=== PATIENT | male | born 1975 | race Caucasian/White ===

== ENCOUNTER 2024-07-11 14:14 | Inpatient (IN) | payer OTHER ==
[~2024-07-11] VITALS: Ht 177.8 cm; Wt 96.4 kg
[2024-07-11] VITALS (9 sets, daily range): BP systolic 145–166; BP diastolic 73–114; PULSE 96–102; RESP 18; TEMP 98; O2SAT 95
[~2024-07-11 14:14] MED LIST: HYDR25TA2 PO; POTA-92 PO; VENL-67 PO
[2024-07-11] MEDS ORDERED: IOHEXOL 300 MG/ML 100 ML VIAL ONE ×2 (14:19→15:10)
[2024-07-11] MEDS ORDERED: LIDOCAINE/PF 1% 30 ML VIAL ONE (14:19)
[2024-07-11] MEDS ORDERED: SODIUM BICARBONATE 50 MEQ/50 ML VIAL ONE (14:19)
[2024-07-11] MEDS ORDERED: HEPARIN SODIUM 1000 UNITS/NS 1,000 ML ONE (14:20)
[2024-07-11] MEDS: MORPHINE SULFATE 4 MG/ML SYRINGE IVP ONE (14:25)
[2024-07-11] MEDS: TICAGRELOR 90 MG TABLET PO ONE (14:25)
[2024-07-11] MEDS: ASPIRIN 81 MG CHEWABLE TABLET PO ONE (14:25)
[2024-07-11] MEDS: HEPARIN SODIUM,PORCINE 5,000 UNITS/ML VIAL IVP ONE (14:25)
[2024-07-11] MEDS: ATORVASTATIN CALCIUM 40 MG TABLET PO ONE (14:25)
[2024-07-11 14:28] LABS: BASOPHILS % (AUTO) 0.8 % (0.0-2.0); EOSINOPHILS % (AUTO) 0.3 % (1.0-6.0); HEMATOCRIT 53.4 % (41-53); HEMOGLOBIN 17.9 g/dL (13.5-17.5); LYMPHOCYTES % (AUTO) 12.1 % (22.0-44.0); MEAN CORPUSCULAR HEMOGLOBIN 29.5 pg (26.0-34.0); MEAN CORPUSCULAR HGB CONC 33.4 G/dL (31.0-37.0); MEAN CORPUSCULAR VOLUME 88 fL (80-100); MONOCYTES # (AUTO) 0.5 K/uL (0.1-1.0); MONOCYTES % (AUTO) 5.7 % (2.0-9.0); NEUTROPHILS # (AUTO) 6.9 K/uL (1.8-7.7); NEUTROPHILS % (AUTO) 81.1 % (40.0-70.0); PLATELET COUNT (AUTO) 336 K/uL (150-450); RED BLOOD CELL COUNT(AUTO) 6.05 MIL/uL (4.50-5.90); RED CELL DISTRIBUTION WIDTH 14.3 % (11.5-14.5); WHITE BLOOD COUNT (AUTO) 8.5 K/uL (4.5-11.0)
[2024-07-11 14:38] LABS: ANION GAP 19 mmol/L (8-16); CALCIUM, TOTAL 9.7 mg/dL (8.8-10.5); CARBON DIOXIDE 21 mmol/L (22-29); CHLORIDE 100 mmol/L (98-107); CREATININE 1.09 mg/dL (0.60-1.30); GLOMERULAR FILTR. RATE CALC > 60 mL/min (>60); GLUCOSE,RANDOM 134 mg/dL (70-110); POTASSIUM 3.1 mmol/L (3.5-5.1); SODIUM SERUM 140 mmol/L (136-145); UREA NITROGEN, BLOOD 11 mg/dL (7-18)
[2024-07-11] MEDS ORDERED: FentaNYL CITRATE PF 100 MCG/2 ML VIAL ONE (14:38)
[2024-07-11] MEDS ORDERED: MIDAZOLAM HCL 2 MG/2 ML VIAL ONE (14:38)
[2024-07-11 14:47] LABS: TROPONIN I-HIGH SENSITIVITY 62 ng/L (<76)
[2024-07-11 14:48] LABS: PROTHROMBIN TIME 11.7 SEC (9.4-11.6)
[2024-07-11] MEDS ORDERED: VERAPAMIL HCL 2.5 MG/ML 2 ML VIAL ONE (15:01)
[2024-07-11] MEDS ORDERED: NITROGLYCERIN 50 MG/D5% WATER 250 ML ONE (15:02)
[2024-07-11] MEDS ORDERED: ONDANSETRON HCL 4 MG/2 ML VIAL ONE ×3 (15:04→17:08)
[2024-07-11 15:05] LABS: B-TYPE NATRIURETIC PEPTIDE 36 pg/mL (0-100)
[2024-07-11] MEDS: HEPARIN SODIUM 2,000 UNITS in HEPARIN SODIUM 1000 UNITS/NS 1,000 ML IARTER ONE (15:24)
[2024-07-11] MEDS: LIDOCAINE 1% 30 ML/SOD BICARB 8.4% 4 ML SQ ONE (15:27)
[2024-07-11] MEDS: MIDAZOLAM HCL 2 MG/2 ML VIAL IVP ONE (15:27)
[2024-07-11] MEDS: HEPARIN SODIUM,PORCINE 1,000 UNITS/ML 10 ML VIAL IVP ONE ×2 (15:28→16:49)
[2024-07-11] MEDS: FentaNYL CITRATE PF 100 MCG/2 ML VIAL IVP ONE (15:28)
[2024-07-11] MEDS: NITROGLYCERIN/D5W 50 MG/250 ML IV BOTTLE ICOR ONE (15:29)
[2024-07-11] MEDS: ONDANSETRON HCL 4 MG/2 ML VIAL IVP ONE (15:30)
[2024-07-11] MEDS: IOHEXOL 300 MG/ML 100 ML VIAL IARTER ONE ×2 (15:31)
[2024-07-11] MEDS: VERAPAMIL HCL 2.5 MG/ML 2 ML VIAL ICOR ONE (15:33)
[2024-07-11] MEDS: SODIUM CHLORIDE 0.9% 500 ML IV ONE (15:34)
[2024-07-11] MEDS ORDERED: ACETAMINOPHEN 325 MG TABLET PO PRN ×2 (16:00→16:15)
[2024-07-11] MEDS ORDERED: ALBUTEROL SULFATE 2.5 MG/0.5 ML NEB SOLUTION NEB PRN (16:15)
[2024-07-11] MEDS ORDERED: IPRATROPIUM BROMIDE 0.5 MG/2.5 ML NEB SOLUTION NEB PRN (16:15)
[2024-07-11] MEDS ORDERED: MAGNESIUM HYDROXIDE SUSPENSION 30 ML UDCUP PO PRN (16:15)
[2024-07-11] MEDS ORDERED: MORPHINE SULFATE 2 MG/ML SYRINGE IVP PRN (16:15)
[2024-07-11] MEDS ORDERED: BISACODYL 10 MG RECTAL RECTAL SUPPOSITORY PR PRN (16:15)
[2024-07-11] MEDS: VERAPAMIL HCL 2.5 MG/ML 2 ML VIAL IARTER ONE (16:49)
[2024-07-11] MEDS: NITROGLYCERIN/D5W 50 MG/250 ML IV BOTTLE IARTER ONE (16:49)
[2024-07-11] MEDS ORDERED: GABA-1181 PO (17:26)
[2024-07-11] MEDS ORDERED: SERT-440 PO (17:26)
[2024-07-11] MEDS ORDERED: GABA-529 PO (17:26)
[2024-07-11] MEDS ORDERED: LAMO150T6 PO (17:26)
[2024-07-11] MEDS ORDERED: TAMS0.4C94 PO (17:26)
[2024-07-11 17:27] LABS: CHOL/HDL RATIO 5.9 (4.2-7.3)
[2024-07-11] MEDS: ONDANSETRON HCL 4 MG/2 ML VIAL IVP PRN (17:43)
[2024-07-11] MEDS: HYDROCODONE/ACETAMINOPHEN 5-325 MG TABLET PO PRN (18:49)
[2024-07-11] MEDS: METOPROLOL SUCCINATE 50 MG ER TABLET PO SCH (20:38)
[2024-07-11] MEDS: GABAPENTIN 300 MG CAPSULE PO SCH (20:38)
[2024-07-11] MEDS: TICAGRELOR 90 MG TABLET PO SCH (20:38)
[2024-07-11] MEDS: LamoTRIgine 100 MG TABLET PO SCH (20:38)
[2024-07-11] MEDS: CHLORHEXIDINE GLUCONATE 2% TOWELETTE [2'S/6'S] TP SCH (21:58)
[2024-07-11] MEDS: HEPARIN SODIUM,PORCINE 5,000 UNITS/ML VIAL SQ SCH (23:23)
[2024-07-12] VITALS (7 sets, daily range): BP systolic 117–157; BP diastolic 76–104; PULSE 100–112; RESP 12–17; TEMP 97.7–98.9; O2SAT 93–95
[2024-07-12] MEDS: ASPIRIN 81 MG CHEWABLE TABLET PO SCH (08:49)
[2024-07-12] MEDS: LOSARTAN POTASSIUM 25 MG TABLET PO SCH ×2 (08:50→20:21)
[2024-07-12] MEDS: PANTOPRAZOLE SODIUM 40 MG DR TABLET PO SCH (08:50)
[2024-07-12] MEDS: ATORVASTATIN CALCIUM 40 MG TABLET PO SCH (08:50)
[2024-07-12] MEDS: TAMSULOSIN HCL 0.4 MG CAPSULE PO SCH (08:50)
[2024-07-12] MEDS: SERTRALINE HCL 100 MG TABLET PO SCH (08:51)
[2024-07-12] MEDS ORDERED: VENLAFAXINE HCL 75 MG ER CAPSULE PO SCH (09:00)
[2024-07-12 10:42] LABS: BASOPHILS % (AUTO) 0.1 % (0.0-2.0); EOSINOPHILS % (AUTO) 0.1 % (1.0-6.0); HEMATOCRIT 51.4 % (41-53); HEMOGLOBIN 16.9 g/dL (13.5-17.5); LYMPHOCYTES # (AUTO) 0.9 K/uL (1.0-4.8); LYMPHOCYTES % (AUTO) 4.8 % (22.0-44.0); MEAN CORPUSCULAR HEMOGLOBIN 29.2 pg (26.0-34.0); MEAN CORPUSCULAR HGB CONC 32.9 G/dL (31.0-37.0); MEAN CORPUSCULAR VOLUME 89 fL (80-100); MONOCYTES # (AUTO) 1.8 K/uL (0.1-1.0); PLATELET COUNT (AUTO) 350 K/uL (150-450); RED BLOOD CELL COUNT(AUTO) 5.78 MIL/uL (4.50-5.90); RED CELL DISTRIBUTION WIDTH 14.7 % (11.5-14.5); WHITE BLOOD COUNT (AUTO) 19.7 K/uL (4.5-11.0)
[2024-07-12 10:47] LABS: ANION GAP 11 mmol/L (8-16); CALCIUM, TOTAL 9.1 mg/dL (8.8-10.5); CARBON DIOXIDE 21 mmol/L (22-29); CHLORIDE 102 mmol/L (98-107); CREATININE 0.87 mg/dL (0.60-1.30); GLOMERULAR FILTR. RATE CALC > 60 mL/min (>60); GLUCOSE,RANDOM 151 mg/dL (70-110); POTASSIUM 3.7 mmol/L (3.5-5.1); SODIUM SERUM 134 mmol/L (136-145); UREA NITROGEN, BLOOD 18 mg/dL (7-18)
[2024-07-12] MEDS: ZOLPIDEM TARTRATE 5 MG TABLET PO PRN (20:21)
[2024-07-12] MEDS: METOPROLOL SUCCINATE 50 MG ER TABLET PO SCH (20:21)
[2024-07-13 00:10] VITALS: BP 131/85; PULSE 100; RESP 18; TEMP 98; O2SAT 94
[2024-07-13 04:12] VITALS: BP 134/83; PULSE 103; RESP 18; TEMP 98.1; O2SAT 95
[2024-07-13 07:05] LABS: BASOPHILS % (AUTO) 0.3 % (0.0-2.0); EOSINOPHILS % (AUTO) 0 % (1.0-6.0); HEMATOCRIT 46.8 % (41-53); HEMOGLOBIN 15.7 g/dL (13.5-17.5); LYMPHOCYTES # (AUTO) 0.9 K/uL (1.0-4.8); MEAN CORPUSCULAR HEMOGLOBIN 29.8 pg (26.0-34.0); MEAN CORPUSCULAR HGB CONC 33.7 G/dL (31.0-37.0); MEAN CORPUSCULAR VOLUME 88 fL (80-100); MONOCYTES # (AUTO) 1.8 K/uL (0.1-1.0); MONOCYTES % (AUTO) 9.6 % (2.0-9.0); NEUTROPHILS # (AUTO) 15.7 K/uL (1.8-7.7); NEUTROPHILS % (AUTO) 85.1 % (40.0-70.0); PLATELET COUNT (AUTO) 270 K/uL (150-450); RED BLOOD CELL COUNT(AUTO) 5.29 MIL/uL (4.50-5.90); RED CELL DISTRIBUTION WIDTH 14.2 % (11.5-14.5); WHITE BLOOD COUNT (AUTO) 18.4 K/uL (4.5-11.0)
[2024-07-13 07:08] VITALS: BP 118/80; PULSE 98; RESP 18; TEMP 97.8; O2SAT 96
[2024-07-13 07:28] LABS: ALANINE AMINOTRANSFERASE 126 U/L (12-78); ALBUMIN 3.4 g/dL (3.4-5.0); ALKALINE PHOSPHATASE 97 U/L (46-116); ANION GAP 12 mmol/L (8-16); ASPARTATE AMINOTRANSFERASE 364 U/L (15-37); BILIRUBIN,TOTAL 1.5 mg/dL (0.1-1.0); CALCIUM, TOTAL 9.2 mg/dL (8.8-10.5); CARBON DIOXIDE 22 mmol/L (22-29); CHLORIDE 99 mmol/L (98-107); CREATININE 0.64 mg/dL (0.60-1.30); GLOMERULAR FILTR. RATE CALC > 60 mL/min (>60); GLUCOSE,RANDOM 110 mg/dL (70-110); POTASSIUM 3.6 mmol/L (3.5-5.1); SODIUM SERUM 133 mmol/L (136-145); TOTAL PROTEIN, SERUM 7.2 g/dL (6.4-8.2); UREA NITROGEN, BLOOD 23 mg/dL (7-18)
[2024-07-13 11:44] VITALS: BP 108/67; PULSE 95; RESP 17; TEMP 98.2; O2SAT 100
[2024-07-13] MEDS: FUROSEMIDE 20 MG TABLET PO SCH (12:05)
[2024-07-13 15:11] VITALS: BP 106/55; PULSE 98; RESP 18; TEMP 98.9; O2SAT 95
[2024-07-13 17:58] LABS: BASOPHILS % (AUTO) 0.3 % (0.0-2.0); EOSINOPHILS % (AUTO) 0 % (1.0-6.0); HEMATOCRIT 44.5 % (41-53); LYMPHOCYTES # (AUTO) 1.1 K/uL (1.0-4.8); LYMPHOCYTES % (AUTO) 6.6 % (22.0-44.0); MEAN CORPUSCULAR HEMOGLOBIN 29.7 pg (26.0-34.0); MEAN CORPUSCULAR HGB CONC 33.7 G/dL (31.0-37.0); MEAN CORPUSCULAR VOLUME 88 fL (80-100); MONOCYTES # (AUTO) 1.7 K/uL (0.1-1.0); MONOCYTES % (AUTO) 10.4 % (2.0-9.0); NEUTROPHILS # (AUTO) 13.7 K/uL (1.8-7.7); NEUTROPHILS % (AUTO) 82.7 % (40.0-70.0); PLATELET COUNT (AUTO) 221 K/uL (150-450); RED BLOOD CELL COUNT(AUTO) 5.04 MIL/uL (4.50-5.90); RED CELL DISTRIBUTION WIDTH 14.3 % (11.5-14.5); WHITE BLOOD COUNT (AUTO) 16.5 K/uL (4.5-11.0)
[2024-07-13 18:08] LABS: ANION GAP 10 mmol/L (8-16); CALCIUM, TOTAL 8.8 mg/dL (8.8-10.5); CARBON DIOXIDE 23 mmol/L (22-29); CHLORIDE 97 mmol/L (98-107); CREATININE 0.69 mg/dL (0.60-1.30); GLOMERULAR FILTR. RATE CALC > 60 mL/min (>60); GLUCOSE,RANDOM 107 mg/dL (70-110); POTASSIUM 3.5 mmol/L (3.5-5.1); SODIUM SERUM 130 mmol/L (136-145); UREA NITROGEN, BLOOD 24 mg/dL (7-18)
[2024-07-13 18:13] LABS: ALANINE AMINOTRANSFERASE 100 U/L (12-78); ALBUMIN 3.1 g/dL (3.4-5.0); ALKALINE PHOSPHATASE 88 U/L (46-116); ASPARTATE AMINOTRANSFERASE 226 U/L (15-37); BILIRUBIN,TOTAL 1.4 mg/dL (0.1-1.0); TOTAL PROTEIN, SERUM 6.6 g/dL (6.4-8.2)
[2024-07-13 20:00] VITALS: BP 113/74; PULSE 97; RESP 18; TEMP 98.5; O2SAT 95
[2024-07-14 03:22] VITALS: BP 101/67; PULSE 93; RESP 18; O2SAT 95
[2024-07-14 07:00] LABS: APPEARANCE,URINE CLEAR (CLEAR); BILIRUBIN,URINE NEGATIVE (NEGATIVE); COLOR,URINE YELLOW (YELLOW); GLUCOSE, URINE (UA) NEGATIVE (NEGATIVE); KETONES,URINE NEGATIVE (NEGATIVE); LEUKOCYTE ESTERASE ,URINE NEGATIVE (NEGATIVE); NITRATE,URINE NEGATIVE (NEGATIVE); OCCULT BLOOD,URINE TRACE (NEGATIVE); PROTEIN,URINE 30-70 mg/dL (NEGATIVE); SPECIFIC GRAVITIY, URINE 1.026 (1.003-1.030)
[2024-07-14 07:15] LABS: BACTERIA,URINE None Seen /HPF (None Seen); RBC,URINE 0-2 /HPF (0-2); SQUAMOUS EPITHELIAL CELL,UR Few /LPF (None Seen); WBC,URINE None Seen /HPF (0-5)
[2024-07-14 07:44] LABS: EOSINOPHILS % (AUTO) 0 % (1.0-6.0); HEMATOCRIT 46.1 % (41-53); HEMOGLOBIN 15.3 g/dL (13.5-17.5); LYMPHOCYTES # (AUTO) 1.1 K/uL (1.0-4.8); LYMPHOCYTES % (AUTO) 7.9 % (22.0-44.0); MEAN CORPUSCULAR HEMOGLOBIN 29.6 pg (26.0-34.0); MEAN CORPUSCULAR HGB CONC 33.3 G/dL (31.0-37.0); MEAN CORPUSCULAR VOLUME 89 fL (80-100); MONOCYTES # (AUTO) 1.4 K/uL (0.1-1.0); MONOCYTES % (AUTO) 10.2 % (2.0-9.0); NEUTROPHILS # (AUTO) 11.2 K/uL (1.8-7.7); NEUTROPHILS % (AUTO) 81.9 % (40.0-70.0); PLATELET COUNT (AUTO) 231 K/uL (150-450); RED BLOOD CELL COUNT(AUTO) 5.18 MIL/uL (4.50-5.90); RED CELL DISTRIBUTION WIDTH 14.2 % (11.5-14.5); WHITE BLOOD COUNT (AUTO) 13.6 K/uL (4.5-11.0)
[2024-07-14 07:53] LABS: ALANINE AMINOTRANSFERASE 86 U/L (12-78); ALKALINE PHOSPHATASE 88 U/L (46-116); ANION GAP 8 mmol/L (8-16); ASPARTATE AMINOTRANSFERASE 163 U/L (15-37); BILIRUBIN,TOTAL 1.4 mg/dL (0.1-1.0); CALCIUM, TOTAL 8.8 mg/dL (8.8-10.5); CARBON DIOXIDE 26 mmol/L (22-29); CHLORIDE 97 mmol/L (98-107); CREATININE 0.73 mg/dL (0.60-1.30); GLOMERULAR FILTR. RATE CALC > 60 mL/min (>60); GLUCOSE,RANDOM 91 mg/dL (70-110); POTASSIUM 3.5 mmol/L (3.5-5.1); SODIUM SERUM 131 mmol/L (136-145); TOTAL PROTEIN, SERUM 6.8 g/dL (6.4-8.2); UREA NITROGEN, BLOOD 18 mg/dL (7-18)
[2024-07-14 09:09] VITALS: BP 102/70; PULSE 96; RESP 18; TEMP 98.1; O2SAT 98
[2024-07-14] MEDS ORDERED: ASPI-1450 PO (12:36)
[2024-07-14] MEDS ORDERED: ATOR40TA71 PO (12:36)
[2024-07-14] MEDS ORDERED: LOSA-417 PO (12:36)
[2024-07-14] MEDS ORDERED: METO-391 PO (12:36)
[2024-07-14] MEDS ORDERED: TICA90TA PO (12:36)
[2024-07-14] MEDS ORDERED: FURO20TA4 PO (12:36)
[2024-07-14 13:02] VITALS: BP 99/54; PULSE 87; RESP 18; TEMP 98.1; O2SAT 96
== END 2024-07-14 13:40 | disposition home or self-care (01) | DRG 322 ==
LOC: EMS 14:14 → 5S 14:25 → EDH 15:13 → ICU 16:57 → 5S 07-12 17:50
PROVIDERS: ADMIT Hospitalist; ATTEND Hospitalist
PROC: 4A023N7 Measurement of Cardiac Sampling and Pressure, Left Heart, Percutaneous Approach (ICD-10-PCS; principal; 2024-07-11)
PROC: 027034Z Dilation of Coronary Artery, One Artery with Drug-eluting Intraluminal Device, Percutaneous Approach (ICD-10-PCS; 2024-07-11)
PROC: 02C03ZZ Extirpation of Matter from Coronary Artery, One Artery, Percutaneous Approach (ICD-10-PCS; 2024-07-11)
PROC: B41F1ZZ Fluoroscopy of Right Lower Extremity Arteries using Low Osmolar Contrast (ICD-10-PCS; 2024-07-11)
PROC: 4A023N7 Measurement of Cardiac Sampling and Pressure, Left Heart, Percutaneous Approach (ICD-10-PCS; 2024-07-11)
PROC: B2111ZZ Fluoroscopy of Multiple Coronary Arteries using Low Osmolar Contrast (ICD-10-PCS; 2024-07-11)
DX: I21.02 ST elevation (STEMI) myocardial infarction involving left anterior descending coronary artery (principal); E87.1 Hypo-osmolality and hyponatremia; I10 Essential (primary) hypertension; E78.5 Hyperlipidemia, unspecified; D72.829 Elevated white blood cell count, unspecified; F20.9 Schizophrenia, unspecified; F17.210 Nicotine dependence, cigarettes, uncomplicated; E87.6 Hypokalemia; F32.A Depression, unspecified; I25.10 Atherosclerotic heart disease of native coronary artery without angina pectoris; N40.0 Benign prostatic hyperplasia without lower urinary tract symptoms; F41.9 Anxiety disorder, unspecified; Z79.899 Other long term (current) drug therapy; Z87.820 Personal history of traumatic brain injury
CPT/HCPCS: 71045; 80048; 80053; 80061; 81001; 83036; 83735; 83880; 84484; 85025; 85610; 85730; 86850; 86900; 86901; 87081; 92920; 92928; 93005; 93306; 99285; J1644; J2250; J2270; J2405; J3010; J3490; Q9967; 36415-L1; 36415-TC; Z7610